=== PATIENT | male | born 2000 | race Caucasian/White ===

== ENCOUNTER 2018-05-03 16:09 | Emergency (ER) | payer BC ==
[2018-05-03 16:45] LABS: BASO % 0.6 % (0-6); EOS % 1.9 % (0-6); GRAN % 49.6 % (47-80); HEMATOCRIT 41.4 % (42.0-52.0); HEMOGLOBIN 14.3 gm/dl (14.0-18.0); LYMPH % 36.2 % (16-45); MEAN CELL VOLUME 79.6 fl (81-97); MEAN CORPUSCULAR HEMOGLOBIN 27.5 pg (27-33); MEAN CORPUSCULAR HGB CONC 34.5 g/dl (32-36); MONO % 11.7 % (0-9); WHITE BLOOD COUNT W/O DIFF 5.3 K/uL (4.2-12.2)
--- NOTE | 2018-05-03 16:51 | Emergency Department Record ---
History of Present Illness - General Chief complaint: GI Bleed Stated complaint: BLOOD IN STOOL Time Seen by Provider: 05/03/18 16:16 Source: Patient, Family Mode of Arrival: Ambulatory Limitations: No limitations - History of Present Illness Initial comments: 17 yo male presents with blood with a bowel movement one hour ago. This week he was diagnosed with low platelet count of 27 and 29. He has seen some blood with blowing his nose. He has a small bruise on the left forearm. He was referred to a admissions nurse for Sunday. No current prescription. He occasionally takes one Motrin a week. PCP is Hankenson. MEEHAN complaint: Blood on toilet paper Onset/Timin -: Days(s) Radiation: None Consistency: Intermittent Improves with: None Worsens with: None Context: Other Associated Symptoms: Denies other symptoms Treatments Prior to Arrival: None - Related Data Home Medications Medication Instructions Recorded Confirmed Last Taken Lorazepam [Ativan] 1 mg PO QHS PRN 05/03/18 05/03/18 Unknown Allergies Allergy/AdvReac Type Severity Reaction Status Date / Time No Known Drug Allergies Allergy Unverified 04/25/18 18:59 Travel Screening - Travel/Exposure Within Last 30 Days Have you traveled within the last 30 days?: No Review of Systems Constitutional: Denies: Chills, Fever, Malaise, Weakness Eyes: Denies: Eye discharge, Eye pain, Photophobia, Vision change ENT: Reports: Congestion, Epistaxis. Denies: Throat pain Respiratory: Denies: Cough, Dyspnea, Hemoptysis, Stridor, Wheezes Cardiovascular: Denies: Chest pain, Edema, Palpitations, Syncope Endocrine: Denies: Fatigue, Polydipsia, Polyuria Gastrointestinal: Reports: Hematochezia. Denies: Abdominal pain, Constipation, Diarrhea, Hematemesis, Melena, Nausea, Vomiting Genitourinary: Denies: Dysuria, Frequency, Hematuria Musculoskeletal: Denies: Arthralgia, Back pain, Neck pain Skin: Reports: As per HPI, Bruising Neurological: Denies: Headache Psychiatric: Denies: Anxiety Hematological/Lymphatic: Denies: Easy bleeding, Easy bruising, Swollen glands Past Medical History - SOCIAL HISTORY Smoking Status: Never smoker Alcohol Use: None Drug Use: None - RESPIRATORY Hx Respiratory Disorders: No - CARDIOVASCULAR Hx Cardio Disorders: No Comment:: myocarditis 2015 - NEURO Hx Neuro Disorders: No - GI Hx GI Disorders: No - Hx Genitourinary Disorders: No - ENDOCRINE Hx Endocrine Disorders: No - MUSCULOSKELETAL Hx Musculoskeletal Disorders: No - PSYCH Hx Psych Problems: No - HEMATOLOGY/ONCOLOGY Hx Hematology/Oncology Disorders: No Family Medical History Any Significant Family History?: Yes Hx Cancer: Grandparents Hx Diabetes: Grandparents Hx HTN: Father, Grandparents Physical Exam - General General Appearance: Alert, Oriented x3, Cooperative, No acute distress Limitations: No limitations - Head Head exam: Atraumatic, Normocephalic, Normal inspection - Eye Eye exam: Normal appearance, PERRL. negative: Conjunctival injection, Scleral icterus - ENT ENT exam: Mucous membranes moist. negative: Normal orophraynx (right sided buccal mucosal bruising 1cm and 5mm area) Ear exam: Normal external inspection Nasal Exam: Dried blood. negative: Active bleeding Mouth exam: Normal external inspection Teeth exam: Normal inspection Throat exam: Normal inspection - Neck Neck exam: Normal inspection. negative: Tenderness - Respiratory Respiratory exam: Normal lung sounds bilaterally. negative: Respiratory distress - Cardiovascular Cardiovascular Exam: Regular rate, Normal rhythm, Normal heart sounds - GI/Abdominal GI/Abdominal exam: Soft. negative: Tenderness - Rectal Rectal exam: Bloody stool, Heme (+) stool. negative: Black stool, Decreased rectal tone - exam: Deferred - Extremities Extremities exam: negative: Normal inspection - Back Back exam: Denies: CVA tenderness (R), CVA tenderness (L) - Neurological Neurological exam: Alert, Normal gait, Oriented X3. negative: Abnormal gait, Altered, Motor sensory deficit - Psychiatric Psychiatric exam: Normal affect, Normal mood. negative: Agitated, Anxious - Skin Skin exam: Dry, Intact, Warm, Other (few scattered petechiae) Course Vital Signs 05/03/18 16:15 Temperature 98.0 F Pulse Rate 86 Respiratory 20 Rate Blood Pressure 136/80 Pulse Ox 98 - Reevaluation(s) Reevaluation #1: 05/03/18 17:12 The platelet count today has decreased to [address] Sutton. She recommends IV steroids and transfer to [facility] for observation and Hematology consultation. 05/03/18 17:29 Dr Lemus accepts the patient for transfer Medical Decision Making - Lab Data Result diagrams: 05/03/18 16:35 05/03/18 16:35 Disposition Disposition: Transfer Clinical Impression: Thrombocytopenia, GI bleed, Epistaxis Disposition: Acute Care Hospital Transfer Transfer To: [facility] Reason For Transfer: Thrombocytopenia Accepting Physician: Allan Time Discussed w/Accepting Physician: 17:13 Condition: (2) Stable Forms: Patient Portal Access Time of Disposition: 17:13 Quality - Quality Measures Quality Measures: N/A - Blood Pressure Screening Does Patient Have Any of the Following: No Blood Pressure Classification: Pre-Hypertensive BP Reading Systolic Measurement: 134 Diastolic Measurement: 80 Screening for High Blood Pressure: < Pre-Hypertensive BP, F/U Documented > [ G8950] Pre-Hypertensive Follow-up Interventions: Referral to alternative/primary care provider.
[2018-05-03 16:52] LABS: PLATELET COUNT 11 K/uL (130-400)
[2018-05-03 16:55] LABS: INR 1.1; PROTHROMBIN TIME (PATIENT) 11.2 SECONDS (9.5-12.1)
[2018-05-03 16:56] LABS: BLOOD UREA NITROGEN 11 mg/dL (6-20); CREATININE 0.8 mg/dL (0.7-1.2)
[2018-05-03 16:58] LABS: GLUCOSE,RANDOM 129 mg/dL (74-109)
[2018-05-03 17:01] LABS: ALB/GLOB RATIO 1.2 (1.1-1.8); ALBUMIN 4.4 g/dL (4.0-5.0); ALKALINE PHOSPHATASE 152 U/L (40-129); ALT/SGPT 41 U/L (<41); AST/SGOT 23 U/L (10.0-50.0)
[2018-05-03] MEDS ORDERED: METHYLPREDNISOLONE PF 125MG/VIAL IVP ONE (17:13)
== END 2018-05-03 17:53 | disposition short-term general hospital (02) ==
LOC: ER 16:09
DX: D69.6 Thrombocytopenia, unspecified (principal); K92.2 Gastrointestinal hemorrhage, unspecified; R04.0 Epistaxis
CPT/HCPCS: 80053; 85025; 85610; 85730; 96374; 99285; J2930

== ENCOUNTER 2019-01-19 11:02 | Emergency (ER) | payer BC ==
--- NOTE | 2019-01-19 11:40 | Emergency Department Record ---
History of Present Illness - General Chief Complaint: Laceration(s) Stated Complaint: L WRIST LAC Time Seen by Provider: 01/19/19 11:31 Source: Patient Mode of Arrival: Ambulatory - History of Present Illness Initial Commments: Saw slipped cutting him on the dorsal aspect of his left forearm just prior to arrival. Thinks he is UTD on his tetanus. Onset/Timin -: Minutes(s) Place: Home Context: Accidental Associated Symptoms: None Treatments Prior to Arrival: Bandage - Keren Coma Scale Eye Response: (4) Open spontaneously Motor Response: (6) Obeys commands Verbal Response: (5) Oriented Keren Total: 15 - Related Data Home Medications Medication Instructions Recorded Confirmed Last Taken Sertraline HCl [Zoloft] 50 mg PO QHS 01/19/19 01/19/19 01/18/19 Previous Rx's Medication Instructions Recorded Cephalexin [Keflex] 500 mg PO QID #39 cap 01/19/19 Allergies Allergy/AdvReac Type Severity Reaction Status Date / Time No Known Drug Allergies Allergy Verified 01/19/19 11:07 Travel Screening - Travel/Exposure Within Last 30 Days Have you traveled within the last 30 days?: No - Travel/Exposure Within Last Year Have you traveled outside the [place] in the last year?: No - Additonal Travel Details Have you been exposed to anyone with a communicable illness?: No - Travel Symptoms Symptom Screening: None Review of Systems Reviewed: No additional complaints except as noted below Constitutional: Reports: As per HPI. Denies: Chills, Fever, Malaise, Night sweats, Weakness, Weight change Eyes: Reports: As per HPI. Denies: Eye discharge, Eye pain, Photophobia, Vision change ENT: Reports: As per HPI. Denies: Congestion, Dental pain, Ear pain, Epistaxis, Hearing loss, Throat pain Respiratory: Reports: As per HPI. Denies: Cough, Dyspnea, Hemoptysis, Stridor, Wheezes Cardiovascular: Reports: As per HPI. Denies: Arrhythmia, Chest pain, Dyspnea on exertion, Edema, Murmurs, Orthopnea, Palpitations, Paroxysmal nocturnal dyspnea, Rheumatic Fever, Syncope Endocrine: Reports: As per HPI. Denies: Fatigue, Heat or cold intolerance, Polydipsia, Polyuria Gastrointestinal: Reports: As per HPI. Denies: Abdominal pain, Constipation, Diarrhea, Hematemesis, Hematochezia, Melena, Nausea, Vomiting Genitourinary: Reports: As per HPI. Denies: Dysuria, Frequency, Hematuria, Incontinence, Retention, Testicular pain, Testicular mass, Urgency Musculoskeletal: Reports: As per HPI. Denies: Arthralgia, Back pain, Gout, Joint swelling, Myalgia, Neck pain Skin: Reports: As per HPI. Denies: Bruising, Change in color, Change in hair/nails, Lesions, Pruritus, Rash Neurological: Reports: As per HPI. Denies: Abnormal gait, Confusion, Headache, Numbness, Paresthesias, Seizure, Tingling, Tremors, Vertigo, Weakness Psychiatric: Reports: As per HPI. Denies: Anxiety, Auditory hallucinations, Depression, Homicidal thoughts, Suicidal thoughts, Visual hallucinations Hematological/Lymphatic: Reports: As per HPI. Denies: Anemia, Blood Clots, Easy bleeding, Easy bruising, Swollen glands Past Medical History - SOCIAL HISTORY Smoking Status: Never smoker Alcohol Use: None Drug Use: None - RESPIRATORY Hx Respiratory Disorders: No - CARDIOVASCULAR Hx Cardio Disorders: No Comment:: myocarditis 2015 - NEURO Hx Neuro Disorders: No - GI Hx GI Disorders: No - Hx Genitourinary Disorders: No - ENDOCRINE Hx Endocrine Disorders: No - MUSCULOSKELETAL Hx Musculoskeletal Disorders: No - PSYCH Hx Psych Problems: No - HEMATOLOGY/ONCOLOGY Hx Hematology/Oncology Disorders: No Family Medical History Any Significant Family History?: Yes Hx Cancer: Grandparents Hx Diabetes: Grandparents Hx HTN: Father, Grandparents Physical Exam - General General Appearance: Alert, Oriented x3, Cooperative, No acute distress - Head Head exam: Normal inspection - Eye Eye exam: Normal appearance, PERRL Pupils: Normal accommodation - ENT ENT exam: Normal exam, Mucous membranes moist, Normal external ear exam, Normal orophraynx, TM's normal bilaterally Ear exam: Normal external inspection. negative: External canal tenderness Nasal Exam: Normal inspection. negative: Discharge, Sinus tenderness Mouth exam: Normal external inspection, Tongue normal Teeth exam: Normal inspection. negative: Dental caries Throat exam: Normal inspection. negative: Tonsillar erythema, Tonsillar exudate - Neck Neck exam: Normal inspection, Full ROM. negative: Tenderness - Respiratory Respiratory exam: Normal lung sounds bilaterally. negative: Respiratory distress - Cardiovascular Cardiovascular Exam: Regular rate, Normal rhythm, Normal heart sounds - GI/Abdominal GI/Abdominal exam: Soft, Normal bowel sounds. negative: Tenderness - Rectal Rectal exam: Deferred - exam: Deferred - Extremities Extremities exam: Normal inspection, Full ROM, Normal capillary refill, Other (laceration to distal dorsal left forearm 2 cm length). negative: Tenderness Image of Full Body: 1 - 2 cm lac to dorsal left forearm - Back Back exam: Reports: Normal inspection, Full ROM. Denies: Muscle spasm, Rash noted, Tenderness - Neurological Neurological exam: Alert, Normal gait, Oriented X3, Reflexes normal - Psychiatric Psychiatric exam: Normal affect, Normal mood - Skin Skin exam: Dry, Intact, Normal color, Warm Course Vital Signs 01/19/19 11:09 Temperature 98 F Pulse Rate 62 Respiratory 20 Rate Blood Pressure 112/53 Pulse Ox 96 - Reevaluation(s) Reevaluation #1: 2 cm linear laceration to lef tforearm explored deeply, no tendon involvement at this more superficial level. No FB seen. Copious irrigation 250 cc with fo debris or fabric seen. Closed skin with #3 verticle mattres and #1 simple interrupted with 4.0 prolene. Patient tolerated well. Informed of all risks and complications possible. 01/19/19 12:49 Medical Decision Making - Management Options MDM Management: No Additional Work-up Planned Disposition Disposition: Discharge Clinical Impression: Laceration of forearm, left Qualifiers: Encounter type: initial encounter Qualified Code(s): S51.812A - Laceration without foreign body of left forearm, initial encounter Disposition: Home, Self-Care Condition: (1) Good Instructions: Laceration (ED) Additional Instructions: Keep clean and dry and covered for protection Talke keflex as directed until gone. Tylenol alternated with ibuprofen as directed as needed for pain. Suture removal 7-10 days. Prescriptions: Cephalexin [Keflex] 500 mg PO QID #39 cap Quality - Quality Measures Quality Measures: N/A - Blood Pressure Screening Does Patient Have Any of the Following: No Blood Pressure Classification: Normal BP Reading Systolic Measurement: 112 Diastolic Measurement: 53 Screening for High Blood Pressure: < Normal BP, F/U Not Required > [G8783]
[2019-01-19] MEDS ORDERED: LIDOCAINE 1% W/EPI 1:100,000 MDV 20 ML VIAL SQ ONE (11:41)
[2019-01-19] MEDS ORDERED: CEPHALEXIN 500 MG CAPSULE PO STA (12:52)
== END 2019-01-19 13:14 | disposition home or self-care (01) ==
LOC: ER 11:02
DX: S51.812A Laceration without foreign body of left forearm, initial encounter (principal); W26.0XXA Contact with knife, initial encounter; Y92.009 Unspecified place in unspecified non-institutional (private) residence as the place of occurrence of the external cause
CPT/HCPCS: 12031; 99284

== ENCOUNTER 2019-01-21 19:22 | Emergency (ER) | payer BC ==
[2019-01-21] MEDS ORDERED: CLINDAMYCIN 600MG/50ML PREMIX 600 MG/50 ML BAG IVPB ONE (19:29)
--- NOTE | 2019-01-21 19:39 | Emergency Department Record ---
History of Present Illness - General Chief Complaint: Wound, check Stated Complaint: WOUND INFECTION/LT FOREARM Time Seen by Provider: 01/21/19 19:24 Source: Patient Mode of arrival: Ambulatory Limitations: No limitations - History of Present Illness Initial Comments: 18 yo male presents to ED for evaluation of redness to the surrounding area following repair of a laceration to the left wrist 48 hours ago resulting from a grinding wheel. Patient denies fevers, chills, drainage from the wound, or swelling of the forearm. Patient does report that he taking Keflex currently, reports that his tetanus is UTD as well. Patient denies health problems at his baseline. MD Complaint: Wound re-check Onset/Timin -: Days(s) Initial Visit For: Cellulitis Returns Today for: Wound recheck Symptoms Since Prior Visit: Worsening redness Associated Symptoms: None - Related Data Previous Rx's Medication Instructions Recorded Cephalexin [Keflex] 500 mg PO QID #39 cap 01/19/19 Clindamycin HCl 300 mg PO QID #28 capsule 01/21/19 Allergies Allergy/AdvReac Type Severity Reaction Status Date / Time No Known Drug Allergies Allergy Verified 01/19/19 11:07 Review of Systems Constitutional: Denies: Chills, Fever, Malaise, Night sweats Eyes: Denies: Eye discharge, Eye pain ENT: Denies: Congestion, Ear pain, Epistaxis Respiratory: Denies: Cough, Dyspnea Cardiovascular: Denies: Chest pain, Dyspnea on exertion Endocrine: Denies: Fatigue, Heat or cold intolerance Gastrointestinal: Denies: Abdominal pain, Nausea, Vomiting Genitourinary: Denies: Incontinence, Retention Skin: Reports: Change in color (Mild redness to the forearm proximally). Denies: Bruising, Change in hair/nails Neurological: Denies: Abnormal gait, Confusion, Headache, Seizure Psychiatric: Denies: Anxiety Hematological/Lymphatic: Denies: Anemia, Blood Clots Past Medical History - SOCIAL HISTORY Smoking Status: Never smoker - RESPIRATORY Hx Respiratory Disorders: No - CARDIOVASCULAR Hx Cardio Disorders: No Comment:: myocarditis 2015 - NEURO Hx Neuro Disorders: No - GI Hx GI Disorders: No - Hx Genitourinary Disorders: No - ENDOCRINE Hx Endocrine Disorders: No - MUSCULOSKELETAL Hx Musculoskeletal Disorders: No - PSYCH Hx Psych Problems: No - HEMATOLOGY/ONCOLOGY Hx Hematology/Oncology Disorders: No Family Medical History Any Significant Family History?: Yes Hx Cancer: Grandparents Hx Diabetes: Grandparents Hx HTN: Father, Grandparents Physical Exam - General General Appearance: Alert, Oriented x3, Cooperative, No acute distress Limitations: No limitations - Head Head exam: Atraumatic, Normocephalic, Normal inspection Head exam detail: negative: Abrasion, Contusion, Watkins's sign, General tenderness, Hematoma, Laceration - Eye Eye exam: Normal appearance. negative: Conjunctival injection, Periorbital swelling, Periorbital tenderness, Scleral icterus - ENT Ear exam: negative: Auricular hematoma, Auricular trauma Nasal Exam: negative: Active bleeding, Discharge, Dried blood, Foreign body Mouth exam: negative: Drooling, Laceration, Muffled voice, Tongue elevation - Neck Neck exam: Normal inspection. negative: Meningismus, Tenderness - Respiratory Respiratory exam: Normal lung sounds bilaterally. negative: Rales, Respiratory distress, Rhonchi, Stridor - Cardiovascular Cardiovascular Exam: Regular rate, Normal rhythm, Normal heart sounds Peripheral Pulses: 3+: Radial (L) - GI/Abdominal GI/Abdominal exam: Soft. negative: Rebound, Rigid - Rectal Rectal exam: Deferred - exam: Deferred - Extremities Extremities exam: Other (Mild erythema extending proximally approximately 5 cm, no warmth to palpation, no induration, no fluctuance. No draiange from the patient's wound on examination.). negative: Calf tenderness, Pedal edema, Tenderness - Back Back exam: Denies: CVA tenderness (R), CVA tenderness (L) - Neurological Neurological exam: Alert, Normal gait, Oriented X3 - Psychiatric Psychiatric exam: Normal affect, Normal mood - Skin Skin exam: Normal color. negative: Abrasion Type of lesion: negative: abrasion Course Vital Signs 01/21/19 19:27 Temperature 97.7 F Pulse Rate [ 67 Pulse Ox Probe] Respiratory 20 Rate Blood Pressure 127/66 [Left Arm] Pulse Ox 99 - Reevaluation(s) Reevaluation #1: 01/21/19 19:39 Patient was seen and examined ? early cellulitis? No clinical evidence for suture removal on examination Will administer IV clindamycin and oral clindamycin with instructions to return to ED in 48 hours for a wound check. Patient appears stable for discharge at this time. Disposition Disposition: Discharge Clinical Impression: Cellulitis of left forearm Disposition: Home, Self-Care Instructions: Cellulitis (ED) Additional Instructions: Return to ED if your symptoms worsen or if you have any concerns. Clindamycin as directed. Discontinue Keflex. Follow-up with your family doctor in 3-5 days as directed. Prescriptions: Clindamycin HCl 300 mg PO QID #28 capsule Time of Disposition: 19:42 Quality - Quality Measures Quality Measures: N/A - Blood Pressure Screening Does Patient Have Any of the Following: No Blood Pressure Classification: Pre-Hypertensive BP Reading Systolic Measurement: 127 Diastolic Measurement: 66 Screening for High Blood Pressure: < Pre-Hypertensive BP, F/U Documented > [G8950] Pre-Hypertensive Follow-up Interventions: Referral to alternative/primary care provider.
== END 2019-01-21 20:24 | disposition home or self-care (01) ==
LOC: ER 19:22
DX: L03.114 Cellulitis of left upper limb (principal); S51.812A Laceration without foreign body of left forearm, initial encounter
CPT/HCPCS: 96365; 99284